=== PATIENT | female | born 1980 | race Caucasian/White ===

== ENCOUNTER 2017-07-16 08:31 | Emergency (ER) | payer OTHER, MEDICAID ==
[~2017-07-16] VITALS: Ht 165.1 cm; Wt 65.0 kg
[2017-07-16] MEDS ORDERED: IBUPROFEN 800MG TABLET PO ONE (09:30)
[2017-07-16 13:14] VITALS: BP 126/70
== END 2017-07-16 13:16 | disposition home or self-care (01) ==
LOC: ER 08:42
DX: M62.838 Other muscle spasm (principal); M54.6 Pain in thoracic spine; V49.88XA Car occupant (driver) (passenger) injured in other specified transport accidents, initial encounter; Y93.89 Activity, other specified; Y99.8 Other external cause status; Y92.410 Unspecified street and highway as the place of occurrence of the external cause
CPT/HCPCS: 72070; 81025; 99284